=== PATIENT | female | born 1965 | race Caucasian/White ===

== ENCOUNTER 2017-08-27 01:08 | Emergency (ER) | payer OTHER, MEDICARE ==
[~2017-08-27] VITALS: Ht 157.5 cm; Wt 75.0 kg
[2017-08-27 01:15] VITALS: BP 138/66; PULSE 90; RESP 20; TEMP 97.5; O2SAT 100
[2017-08-27] MEDS ORDERED: SODIUM CHLOR 0.9% 1000 ML INJ 1,000 ML IV ONE (01:45)
--- NOTE | 2017-08-27 01:53 | RADRPT ---
EXAM DATE/TIME: 08/27/2017 01:37 [facility] COMPARISON: No previous studies available for comparison. INDICATIONS : Trauma; fall. ETOH. RADIATION DOSE: 69.15 CTDIvol (mGy) MEDICAL HISTORY : Non-responsive. SURGICAL HISTORY : Non-responsive. ENCOUNTER: Initial ACUITY: 1 day PAIN SCALE: Non-responsive LOCATION: cranial TECHNIQUE: Multiple contiguous axial images were obtained of the head. Using automated exposure control and adj ustment of the mA and/or kV according to patient size, radiation dose was kept as low as reasonably a chievable to obtain optimal diagnostic quality images. DICOM format image data is available electro nically for review and comparison. FINDINGS: CEREBRUM: The ventricles are normal for age. No evidence of midline shift, mass lesion, hemorrhage or acute in farction. No extra-axial fluid collections are seen. POSTERIOR FOSSA: The cerebellum and brainstem are intact. The 4th ventricle is midline. The cerebellopontine angle i s unremarkable. EXTRACRANIAL: The visualized portion of the orbits is intact. SKULL: The calvaria is intact. No evidence of skull fracture. CONCLUSION: Negative trauma study. Sj Arteaga MD on August 27, 2017 at 1:51 Board Certified Radiologist. This report was verified electronically.
--- NOTE | 2017-08-27 02:11 | RADRPT ---
EXAM DATE/TIME: 08/27/2017 01:37 [facility] COMPARISON: No previous studies available for comparison. INDICATIONS : Trauma; fall. RADIATION DOSE: 34.68 CTDIvol (mGy) MEDICAL HISTORY : Non-responsive. SURGICAL HISTORY : Non-responsive. ENCOUNTER: Initial ACUITY: 1 day PAIN SCALE: Non-responsive LOCATION: neck TECHNIQUE: Volumetric scanning of the cervical spine was performed. Multiplanar reconstructions i n the sagittal, coronal and oblique axial planes were performed. Using automated exposure control a nd adjustment of the mA and/or kV according to patient size, radiation dose was kept as low as reason ably achievable to obtain optimal diagnostic quality images. DICOM format image data is available e lectronically for review and comparison. FINDINGS: The sagittal reconstructions demonstrate normal alignment and normal prevertebral soft tissues. The d ens is intact and there is a normal atlantoaxial relationship. The axial images demonstrate that the vertebral bodies and posterior elements are intact. The soft ti ssues are within normal limits. There is no evidence of acute fracture or malalignment. There are hyp ertrophic changes involving left C4-5 facet joint. CONCLUSION: Negative trauma CT. Sj Arteaga MD on August 27, 2017 at 2:08 Board Certified Radiologist. This report was verified electronically.
--- NOTE | 2017-08-27 02:53 | PD ---
HPI Chief Complaint: Alcohol/Drug Intoxication Time Seen by Provider: 01:22 Travel History International Travel<30 days: No Contact w/Intl Traveler<30days: No Traveled to known affect area: No History of Present Illness HPI Patient is a 52-year-old female who comes in intoxicated after she fell and hit her head. She does not remember the event. Her boyfriend says that she had 7 or 8 vodka drinks tonight and she normally doesn't drink. He says they were trying to help her back to their motel when she fell back in her head. He does not think that she passed out. She is complaining of pain to the back of her head. She does not take any blood thinners. She has no other complaints. She was in her normal state of health prior to the event tonight. [facility] Past Medical History GERD: Yes Hypertension: Yes ?: Not Past Surgical History Surgical History: No Previous Surgery Social History Alcohol Use: No ("rarely") Tobacco Use: Yes (1 ppd) Substance Use: No Allergies-Medications (Allergen,Severity, Reaction): Coded Allergies: No Allergy Information Available (Unverified , 08/27/17) Review of Systems ROS Limitations: Intoxication Physical Exam Narrative GENERAL: Awake and alert, in no acute distress. Alcohol on breath. SKIN: Focused skin assessment warm/dry. Abrasion to the occiput. HEAD: Atraumatic. Normocephalic. EYES: Pupils equal and round. No scleral icterus. Extraocular movements intact. ENT: Mucous membranes pink and moist. NECK: Trachea midline. No JVD. No cervical spine tenderness. CARDIOVASCULAR: Regular rate and rhythm. No murmur appreciated. RESPIRATORY: No accessory muscle use. Clear to auscultation. Breath sounds equal bilaterally. GASTROINTESTINAL: Abdomen soft, non-tender, nondistended. MUSCULOSKELETAL: No obvious deformities. No clubbing. No cyanosis. No edema. NEUROLOGICAL: Awake and alert. No obvious cranial nerve deficits. Motor grossly within normal limits. Normal speech. PSYCHIATRIC: Toxic he didn't weeping. Data Data Last Documented VS Vital Signs Date Time Temp Pulse Resp B/P (MAP) Pulse Ox O2 Delivery O2 Flow Rate FiO2 08/27/17 01:15 97.5 90 20 138/66 (90) [address] Brain W/O Iv Contrast(Rout) (08/27/17 ) Ct Cerv Spine W/O Contrast (08/27/17 ) Sodium Chlor 0.9% 1000 Ml Inj (Ns 1000 M (08/27/17 01:45) MDM Medical Decision Making Medical Screen Exam Complete: Yes Emergency Medical Condition: Yes Differential Diagnosis Alcohol intoxication versus head trauma versus dehydration Narrative Course Patient is a 52-year-old female comes in intoxicated after a fall tonight. Exam shows an abrasion to the occiput. CT head and C-spine performed show no acute abnormality. Patient given IV fluids. She'll be discharged with her boyfriend. Advised to avoid alcohol use. Advised to return to the ED as needed for any worsening symptoms. Diagnosis Primary Impression: Alcohol intoxication Qualified Codes: F10.920 - Alcohol use, unspecified with intoxication, uncomplicated Additional Impression: Fall Qualified Codes: W19.XXXA - Unspecified fall, initial encounter Patient Instructions: Alcohol Intoxication (ED), General Instructions, Head Injury (ED) Additional Instructions: Avoid alcohol use. Drink plenty of fluids. Return to the ED as needed for any worsening symptoms. Disposition: 01 DISCHARGE HOME Condition: Stable Ijeoma Christianson MD Aug 27, 2017 02:53
[2017-08-27] MEDS ORDERED: IBUPROFEN 600 MG TAB PO ONE (03:45)
== END 2017-08-27 03:44 | disposition home or self-care (01) ==
LOC: NEPC 01:08
DX: F10.920 Alcohol use, unspecified with intoxication, uncomplicated (principal); W19.XXXA Unspecified fall, initial encounter; I10 Essential (primary) hypertension; F17.210 Nicotine dependence, cigarettes, uncomplicated
CPT/HCPCS: 70450; 72125; 96360; 99285; J7030